=== PATIENT | male | born 1960 | race Caucasian/White ===

== ENCOUNTER → 2017-02-04 | Outpatient (CLI) | payer BC ==
[~2017-02-04] MED LIST: ELAVIL 50 MG TA50 MG PO; ESSENTIAL DAIL1 EACH PO; FERROUS SULFAT325 M2 PO; FLOMAX0.4 MG PO; LIPITOR TAB 1010 MG PO; NAPROSYN EC 50500 MG PO; NEURONTIN 300300 MG PO; OMEPRAZOLE40 MG PO; PLAVIX 75 MG TA75 MG PO; PRINIVIL5 MG PO; TOPROL XL50 MG PO
== END ==
LOC: CT 14:08
DX: D49.0 Neoplasm of unspecified behavior of digestive system (principal); K76.89 Other specified diseases of liver
CPT/HCPCS: J7050; Q9965

== ENCOUNTER → 2021-06-23 | Outpatient (CLI) | payer MEDICARE ==
[~2021-06-23] MED LIST changes: +ALEVE220 MG PO; +ASPIR 8181 MG PO; +BREO ELLIPTA 21 EACH INH; +CYANOCOBAL1000 MCG/1 INJ; +FLOMAX 0.4 MG0.4 MG PO; +IPRAT-ALBUT 0.5-3 ML INH; +ISOSORBIDE MONO20 MG PO; +KETOROLAC 0.5% EYEBOTH; +LIPITOR20 MG PO; +LIPITOR40 MG PO; +LO-DOSE ASPIRIN81 MG PO; +LOSARTAN POTASS25 MG PO; +NITROSTAT 0.40.4 MG SL; +PERCOCET 5-3251 EACH PO; +TOPROL XL100 MG PO; +VENTOLIN HFA 66.7 GM INH; +VITAMIN D325 MCG PO; +VITRON-C TABLE1 EACH PO
[2021-06-23 09:41] LABS: HEMOGLOBIN 16.5 gm/dl (14.0-17.5); RED BLOOD COUNT 4.88 M/UL (4.20-5.50)
[2021-06-23 10:04] LABS: BUN/CREATININE RATIO 15 (0-10)
== END ==
LOC: OPSV2 08:55
PROVIDERS: Orthopaedic Surgery
DX: Z01.818 Encounter for other preprocedural examination (principal); G56.02 Carpal tunnel syndrome, left upper limb; Z20.822 Contact with and (suspected) exposure to COVID-19
CPT/HCPCS: 36415; 80048; 85025; 93005; U0003

== ENCOUNTER → 2021-06-25 | Day surgery (SDC) | payer MEDICARE ==
[~2021-06-25] VITALS: Ht 182.9 cm; Wt 95.7 kg
== END | disposition home or self-care (01) ==
LOC: OR 06:32
DX: G56.02 Carpal tunnel syndrome, left upper limb (principal); I10 Essential (primary) hypertension; E78.5 Hyperlipidemia, unspecified; J44.9 Chronic obstructive pulmonary disease, unspecified; K21.9 Gastro-esophageal reflux disease without esophagitis; F17.210 Nicotine dependence, cigarettes, uncomplicated; Z20.822 Contact with and (suspected) exposure to COVID-19; M54.9 Dorsalgia, unspecified; G89.29 Other chronic pain; I73.9 Peripheral vascular disease, unspecified
CPT/HCPCS: J0690; J1100; J1885; J2001; J2250; J2405; J2704; J3010; J7120